=== PATIENT | female | born 1955 | race Caucasian/White ===

== ENCOUNTER → 2017-09-24 | Outpatient (CLI) | payer OTHER ==
[~2017-09-24] MED LIST: ACYC400T PO; ACYC5CRE2 TP; DEXL30CA PO; DULO20CA50 PO; ESTR0.5T PO; GABA300S PO; METF100P4 MC; MIDO2.5T PO; NEBI2.5T2 PO; OMEG1CAP2 PO; OMEP5POW MC; TIZANIDINE HCL2 M1 PO; TRAZ5POW MC; [UNRECOGNIZED DRUG - CODE] MC; [UNRECOGNIZED DRUG - CODE] MC
--- NOTE | 2017-09-24 09:01 | RAD ---
5 view lumbar spine series History: Low back pain. History of multiple back surgeries. Comparison: December 15, 2006 intraoperative lateral view. Findings: No compression fracture or discitis or osteolytic process is seen. No spondylolysis is seen. Minimal levoscoliosis is evident. The transverse processes appear intact. Bilateral transpedicular screws are seen at L3 and L4 connected by 2 vertical stabilizer bars. Laminectomy of L4 and left-sided L5 is seen. There appears to be a laminectomy of L3 although the spinous process is still present. Posterior osseous fusion is seen from L4 through S1. Interbody disc space expanding fusion devices are seen within the L4-5 and L5-S1 disc spaces. No compression fracture or discitis or osteolytic process is seen. A minimal grade 1 anterolisthesis of L4-5 is seen. This is unchanged. There is severe degenerative disc space narrowing and moderate subchondral sclerosis and mild degenerative endplate spurring at L2-3. This has progressed from the previous study. There is severe degenerative disc space narrowing at L3-4 which appears partially fused. This is a new finding from the previous study. IMPRESSION: Fusion from L3 through S1. There is progressive degenerative disc space narrowing at L2-3 and L3-4 although the finding at L3-4 may be due to fusion of the disc space if this was performed in addition to the placement of the transpedicular screws.
== END | disposition home or self-care (01) ==
LOC: DXRAD 08:11
PROVIDERS: ATTEND Physician Assistant Medical
DX: M41.86 Other forms of scoliosis, lumbar region (principal); M53.86 Other specified dorsopathies, lumbar region; M43.27 Fusion of spine, lumbosacral region; Z98.890 Other specified postprocedural states
CPT/HCPCS: 72110

== ENCOUNTER → 2017-09-24 | Outpatient (CLI) | payer OTHER ==
--- NOTE | 2017-09-24 14:51 | RAD ---
DATE: 09/24/2017. EXAM: MAMMO PAULINO SCREENING BILATERAL. HISTORY: Routine mammographic screening. COMPARISON: 02/13/2016. This study was interpreted with the benefit of Computerized Aided Detection (CAD). FINDINGS: The breast parenchyma shows scattered fibroglandular densities. Breast parenchyma level B.. There is a new small nodule inferomedially on the left, not present on the prior study. On the right, small nodules. Stable. Scattered calcifications appear benign. There is no suspicious finding on the right. BI-RADS CATEGORY: 0 INCOMPLETE: NEEDS ADDITIONAL IMAGING EVALUATION AND/OR PRIOR MAMMOGRAMS FOR COMPARISON.. RECOMMENDED FOLLOW-UP: ADD ADDITIONAL IMAGING. Spot compression/magnification of a small nodule inferomedially on the left. Sonography of necessary. PQRS compliance statement: Patient information was entered into a reminder system with a target due date (now) for the next mammogram. Mammography is a sensitive method for finding small breast cancers, but it does not detect them all and is not a substitute for careful clinical examination. A negative mammogram does not negate a clinically suspicious finding and should not result in delay in biopsying a clinically suspicious abnormality. "Our facility is accredited by the [employer] Mammography Program."
== END | disposition home or self-care (01) ==
LOC: MAMMO 08:34
PROVIDERS: ATTEND Physician Assistant Medical
DX: Z12.31 Encounter for screening mammogram for malignant neoplasm of breast (principal)
CPT/HCPCS: 77063; G0202; 77067

== ENCOUNTER → 2017-10-13 | Outpatient (CLI) | payer OTHER ==
--- NOTE | 2017-10-13 16:49 | RAD ---
Ultrasound left breast Indication: Callback for abnormality seen on screening mammogram from 09/24/2017 Technique: Targeted left breast ultrasound in the inner lower quadrant. Comparison: Same day diagnostic mammogram and most recent screening mammogram. Findings: There is a 0.1 x 0.2 x 0.2 cm anechoic well-circumscribed lesion in the left breast at 7:00 position approximately 4.5 cm from the nipple without internal vascularity or posterior shadowing. No other sinus or cystic lesions identified. Impression: The abnormality seen on the screening mammogram corresponds to a simple cyst on ultrasound. BI-RADS 2: Benign finding.
--- NOTE | 2017-10-13 17:22 | RAD ---
Ultrasound thyroid Indication: Abnormal labs Technique: Grayscale and color Doppler ultrasound images of the thyroid Comparison: None Findings: The right thyroid lobe measures 3.2 x 1.1 x 1.0 cm and is heterogenous in echogenicity without discrete nodules. The left thyroid lobe measures 3.6 x 1.1 x 1.0 cm and is heterogenous in echogenicity without discrete nodules. Increased vascularity seen in the bilateral thyroid lobes. The isthmus measures 3 mm and is within normal limits. Impression: Heterogenous appearance of the bilateral thyroid lobes with increased vascularity. Findings may represent thyroiditis.
--- NOTE | 2017-10-14 08:40 | RAD ---
DATE: 10/14/2017 EXAM: DIGITAL DIAGNOSTIC LT HISTORY: Callback for abnormality seen on screening mammogram. COMPARISON: Screening mammogram from 09/24/2017 This study was interpreted with the benefit of Computerized Aided Detection (CAD). Mediolateral and spot compression MLO and spot compression CC views were obtained of the left breast. FINDINGS: Breast Density: SCATTERED The breast parenchyma shows scattered fibroglandular densities. Breast parenchyma level B. Redemonstrated is a 2.8 mm round well-circumscribed mass in the medial aspect of the left breast approximately at 7:00 position which is also seen on previous screening mammogram. No suspicious calcifications. Same day ultrasound demonstrates this lesion to be a simple cyst. IMPRESSION: The mammographic and ultrasound findings are compatible with a simple cyst. Please see report on same day ultrasound. BI-RADS CATEGORY: 2 BENIGN FINDING(S) RECOMMENDED FOLLOW-UP: 12M 12 MONTH FOLLOW-UP PQRS compliance statement: Patient information was entered into a reminder system with a target due date 10/14/2018 for the next mammogram. Mammography is a sensitive method for finding small breast cancers, but it does not detect them all and is not a substitute for careful clinical examination. A negative mammogram does not negate a clinically suspicious finding and should not result in delay in biopsying a clinically suspicious abnormality. "Our facility is accredited by the [employer] Mammography Program."
== END | disposition home or self-care (01) ==
LOC: US 14:08
PROVIDERS: ATTEND Physician Assistant Medical
DX: N60.02 Solitary cyst of left breast (principal); R92.8 Other abnormal and inconclusive findings on diagnostic imaging of breast; R92.2 Inconclusive mammogram
CPT/HCPCS: 76536; 76641; G0206; 77065

== ENCOUNTER → 2018-08-15 | Outpatient (CLI) | payer OTHER ==
--- NOTE | 2018-08-15 14:15 | RAD ---
DATE: 08/15/2018 EXAM: MAMMO PAULINO SCREENING BILATERAL HISTORY: Routine screening COMPARISON: 09/24/2017 This study was interpreted with the benefit of Computerized Aided Detection (CAD). Breast Density: SCATTERED The breast parenchyma shows scattered fibroglandular densities. Breast parenchyma level B. FINDINGS: 2-D and 3-D tomosynthesis imaging was performed in CC and MLO projections. There are scattered fibroglandular densities in a somewhat nodular pattern. No new or enlarging breast densities are seen. No spiculated mass or architectural distortion is evident. Minimal benign type calcifications are present. No suspicious microcalcifications have developed. IMPRESSION: Stable mammograms without evidence of malignancy. BI-RADS CATEGORY: 2 BENIGN FINDING(S) RECOMMENDED FOLLOW-UP: 12M 12 MONTH FOLLOW-UP PQRS compliance statement: Patient information was entered into a reminder system with a target due date for the next mammogram. Mammography is a sensitive method for finding small breast cancers, but it does not detect them all and is not a substitute for careful clinical examination. A negative mammogram does not negate a clinically suspicious finding and should not result in delay in biopsying a clinically suspicious abnormality. "Our facility is accredited by the [employer] Mammography [employer]."
== END | disposition home or self-care (01) ==
LOC: MAMMO 11:37
PROVIDERS: ATTEND Physician Assistant Medical
DX: Z12.31 Encounter for screening mammogram for malignant neoplasm of breast (principal)
CPT/HCPCS: 77063; 77067

== ENCOUNTER → 2018-08-29 | Outpatient (CLI) | payer OTHER ==
--- NOTE | 2018-08-29 15:31 | RAD ---
EXAM: Right elbow, 2 views. HISTORY: Pain. COMPARISON: None. FINDINGS: 2 views of the right elbow are obtained. There is no fracture, dislocation or subluxation. There is no elbow effusion. 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 There is a small osseous excrescence along the lateral epicondyle, the likely sequela of remote injury. IMPRESSION: 1. No acute osseous finding. 2. Minimal right elbow osteoarthritis. Electronically signed by: Ciara Huynh MD (08/29/2018 3:28 PM) [facility]
== END | disposition home or self-care (01) ==
LOC: RAD 14:14
PROVIDERS: ATTEND Orthopaedic Surgery Sports Medicine
DX: M19.021 Primary osteoarthritis, right elbow (principal)
CPT/HCPCS: 73070

== ENCOUNTER → 2019-09-27 | Outpatient (CLI) | payer OTHER ==
--- NOTE | 2019-09-28 15:34 | RAD ---
DATE: 09/27/2019 EXAM: MAMMO PAULINO SCREENING BILATERAL HISTORY: Routine screening COMPARISON: 08/15/2018, 10/13/2017 This study was interpreted with the benefit of Computerized Aided Detection (CAD). Breast Density: SCATTERED The breast parenchyma shows scattered fibroglandular densities. Breast parenchyma level B. FINDINGS: Multiple small masses are present bilaterally and stable. No suspicious new mass. No suspicious change. No suspicious calcific lesions or distortion. IMPRESSION: Stable BI-RADS CATEGORY: 1 NEGATIVE RECOMMENDED FOLLOW-UP: 12M 12 MONTH FOLLOW-UP PQRS compliance statement: Patient information was entered into a reminder system with a target due date for the next mammogram. Mammography is a sensitive method for finding small breast cancers, but it does not detect them all and is not a substitute for careful clinical examination. A negative mammogram does not negate a clinically suspicious finding and should not result in delay in biopsying a clinically suspicious abnormality. "Our facility is accredited by the [employer] Mammography Program."
== END | disposition home or self-care (01) ==
LOC: MAMMO 15:28
PROVIDERS: ATTEND Physician Assistant Medical
DX: Z12.31 Encounter for screening mammogram for malignant neoplasm of breast (principal); N63.20 Unspecified lump in the left breast, unspecified quadrant; N63.10 Unspecified lump in the right breast, unspecified quadrant
CPT/HCPCS: 77063; 77067

== ENCOUNTER → 2019-09-28 | Outpatient (CLI) | payer OTHER ==
--- NOTE | 2019-09-29 10:46 | RAD ---
EXT NON VASC LEFT History: Palpable mass of the left elbow for about 8 months getting larger Comparison: None. Findings: Sonographic images directed toward the site of palpable concern in the left antecubital region are submitted. No sonographic abnormality is demonstrated. Impression: 1. No sonographic abnormality is demonstrated at site of palpable concern. Electronically signed by: Felix Bains MD (09/29/2019 10:43 AM) [id number]
== END | disposition home or self-care (01) ==
LOC: US 13:48
PROVIDERS: ATTEND Physician Assistant Medical
DX: R22.9 Localized swelling, mass and lump, unspecified (principal)
CPT/HCPCS: 76881

== ENCOUNTER → 2019-11-02 | Outpatient (CLI) | payer OTHER ==
--- NOTE | 2019-11-02 15:29 | RAD ---
Bilateral lower extreme knee arterial duplex ultrasound study without comparison for poor circulation. TECHNIQUE: Real-time grayscale and color and spectral Doppler evaluation of the arteries of the lower extremities is performed. FINDINGS: All arteries are patent. There may be mild multifocal atherosclerosis in both lower extremities, however there are no significant abnormal waveforms or focal areas of velocity elevation to suggest hemodynamically significant stenosis in any distribution. IMPRESSION: 1. Mild multifocal atherosclerosis with no significant stenosis in either lower extremity. Electronically signed by: Luis Enrique Cantor MD (11/02/2019 3:25 PM) [id number]
== END | disposition home or self-care (01) ==
LOC: US 07:41
PROVIDERS: ATTEND Orthopaedic Surgery Sports Medicine
DX: I70.293 Other atherosclerosis of native arteries of extremities, bilateral legs (principal)
CPT/HCPCS: 93925

== ENCOUNTER 2020-07-24 00:21 | Emergency (ER) | payer OTHER ==
[~2020-07-24] VITALS: Ht 160 cm; Wt 78.0 kg
[2020-07-24 00:23] VITALS: BP 122/68
--- NOTE | 2020-07-24 00:45 | PHYS DOC ---
Past History Past Medical History: Anxiety, Asthma, Depression, High Cholesterol Adult General Chief Complaint Chief Complaint: COUGH HPI HPI Patient is a 64-year-old female who presents with URI-like symptoms. Onset was 3 days ago. Nothing known makes better or worse. She has not taken anything in attempt to alleviate her symptoms. Patient denies any pain but admits associated symptoms that include dull headache, nasal congestion, rhinorrhea, postnasal drip, and bilateral ear pressure. She denies any fever, chest pain, shortness of breath, hemoptysis, abdominal pain, nausea vomiting or diarrhea, change in taste or smell, exogenous estrogen use, long distance travel, history of DVT/PE, known COVID-19 contact. Patient presenting with her today who is experiencing similar symptoms, his symptoms started roughly 3 to 5 days prior to patients. They both work at local [place] and deal with the general public daily. Review of Systems Review of Systems Fourteen body systems of review of systems have been reviewed. See HPI for pertinent positives and negative responses, other pineda all other systems are negative, non-pertinent or non-contributory Allergies Allergies Allergies Coded Allergies Type Severity Reaction Last Updated Verified codeine Allergy Unknown 03/10/16 Yes latex Allergy Unknown 03/10/16 Yes meperidine HCl Allergy Unknown 03/10/16 Yes Uncoded Allergies Type Severity Reaction Last Updated Verified SULFA Allergy Unknown 03/10/16 Physical Exam Physical Exam Constitutional: Well developed, well nourished, no acute distress, non-toxic appearance. Ambulated without difficulty from lobby to ER room HENT: Normocephalic, atraumatic, bilateral external ears normal, oropharynx moist, no oral exudates, moderate postnasal drip present, moderately engorged nasal turbinates with clear rhinorrhea present, external nose normal. Eyes: PERRLA, EOMI, conjunctiva normal, no discharge. Neck: Normal range of motion, no tenderness, supple, no stridor. Cardiovascular: Heart rate regular, sinus rhythm, no murmurs rubs or gallops Lungs & Thorax: Bilateral breath sounds clear to auscultation Abdomen: Bowel sounds normal, soft, no tenderness, no masses, no pulsatile masses. Nonsurgical abdomen, no peritoneal signs Skin: Warm, dry, no erythema, no rash. Back: No tenderness, no CVA tenderness. Extremities: No tenderness, no cyanosis, no clubbing, ROM intact, no edema. Neurologic: Alert and oriented X 3, grossly normal motor & sensory function, no focal deficits noted. Psychologic: Affect normal, judgement normal, anxious mood Current Patient Data Vital Signs Vital Signs Date Time Temp Pulse Resp B/P (MAP) Pulse Ox O2 Delivery O2 Flow Rate FiO2 07/24/20 00:23 98.4 73 18 122/68 (86) 97 Room Air EKG EKG [] Radiology/Procedures Radiology/Procedures [] Course & Med Decision Making Course & Med Decision Making Grossly well-appearing afebrile and ambulatory patient seen on immediate ER arrival ABCs non-concerning Comprehensive history and physical exam obtained, no emergent or surgical findings present Discussed most likely diagnosis of viral syndrome, I cannot exclude COVID-19 and tested patient for this today I discussed utility in further diagnostic work-up including laboratory analysis and imaging but given benign appearance and lack of any concerning symptoms, joint decision to defer this. She does not have any major comorbidities and both agree anxiety is exacerbating her presentation I did disclose this might be an acute presentation of more concerning pathology and patient understood this well. She has access to PCP and can follow-up within the next 1 to 10 days to ensure symptomatic resolution Nonetheless, patient notified that she is now a person under investigation for COVID-19, she was instructed on importance of self quarantining, hand hygiene etc. until COVID-19 test results in approximately 48 hours, she understood this well Strict return precautions were discussed with good understanding by patient, all questions and concerns addressed prior to ER departure in stable condition Dragon Disclaimer Dragon Disclaimer This electronic medical record was generated, in whole or in part, using a voice recognition dictation system. Departure Departure: Impression: Primary Impression: Person under investigation for COVID-19 Additional Impression: Viral syndrome Disposition: 01 HOME/RESIDENCE PRIOR TO ADM Condition: STABLE Referrals: BOSSMAN SIMMONS (PCP) Patient Instructions: Viral Syndrome Additional Instructions: Short You were evaluated in the Emergency Department today for a cough. Your e valuation suggests a viral infection such as Coronavirus. It is important that you continue to self isolate and practice good hygiene at home. Please follow up with your primary care physician as discussed. Return to the Emergency Department if you experience worsening cough, fever, shortness of breath, recurrent vomiting, lethargy, or any other concerning symptoms. Thank you for choosing us for your care. Usted fue evaluado en el Departamento de Emergencia hoy por tos. Friedman evaluacin sugiere jose m infeccin viral lucila el coronavirus. Es importante que contine aislndose y practicando jose m buena higiene en el hogar. Mae un seguimiento con friedman mdico de atencin primaria lucila se discuti. Regrese al Departamento de Emergencias si experimenta un empeoramiento de la tos, fiebre, falta de aliento, vmitos recurrentes, letargo o cualquier otro sntoma relacionado. Janette por elegir nosotros para friedman atencin. Home Care Instructions for Patients with Mild Respiratory Infection Most people with respiratory infections like colds, the flu, and Coronavirus Disease (COVID-19) will have mild illness and can get better with appropriate home care and without the need to see a provider. People who are elderly, , or have a weak immune system, or other medical problem are at higher risk of more serious illness or complications. It is recommended that they carefully monitor their symptoms closely and seek medical care early if their symptoms get worse. Treatment There is no specific treatment for most viruses including those that that cause the common cold and those that cause COVID-19. Sometimes there is treatment for the viruses that cause influenza if given early. Antibiotics treat infections caused by bacteria, but they do not work against viruses.Most people recover on their own from these viruses, including COVID-19. Here are steps that you can take to help you get better: Rest Drink plenty of fluids Take ztop-jtu-wjjkupn cold and flu medications to reduce fever and pain. Follow the instructions on the package, unless your doctor gave you instructions. Note that these medicines do not ``cure the illness and therefore do not stop you from spreading germs. Children should not be given medication that contains aspirin (acetylsalicylic acid) because it can cause a rare but serious illness called Isai syndrome. Medicines without aspirin include acetaminophen (Tylenol) and ibuprofen (Ad amparo, Motrin). Children younger than age 2 should not be given any pwcg-ggv-vtywvgs cold medications without first speaking with a doctor.Seeking Medical Care You should seek medical care if you are not getting better within a week, or if your symptoms get worse. If you are elderly, , have a weak immune system, or other medical problems, call your doctor right away. It is best to call ahead of time to discuss your symptoms, if possible. This may allow you to receive the advice you need by phone. By avoiding a visit to a healthcare facility, you protect yourself from getting a new infection and protect others from catching an infection from you. If you do visit a healthcare facility, put on a mask to protect other patients and staff. It is recommended that you seek medical care for serious symptoms, such as: People with potentially life-threatening symptoms should call 911. If possible, put on a facemask before emergency medical services arrive.PROTECTING OTHERS Follow the steps below to help prevent the disease from spreading to people in your home and community.Stay home when you are sick Stay home - do not go to work, school, or public areas. Stay home for at least 24 hours after your symptoms have gone away without the use of fever-reducing medicines. If you must leave home while you are sick, try to avoid using public transportation, ride-shares, and taxis. Wear a mask if possible. Separate yourself from other people and animals in your home Stay in a specific room and away from other people in your home as much as possible. Use a separate bathroom, if available. Try to stay at least 6 feet from others. Do not handle pets or other animals while you are sick. Cover your coughs and sneezes Cover your mouth and nose with a tissue when you cough or sneeze. Throw used tissues in a lined trash can; immediately wash your hands. Avoid sharing personal household items Do not share dishes, drinking glasses, cups, eating utensils, towels, or bedding with other people or pets in your home. Wash them thoroughly with soap and water after use. Clean your hands often Wash your hands often with soap and water for at least 20 seconds. If soap and water are not available, clean your hands with an alcohol-based hand developer architect that contains at least 60% alcohol, covering all surfaces of your hands and rubbing them together until they feel dry. Use soap and water if your hands are visibly dirty. Clean all ``high-touch surfaces every day High touch surfaces include counters, tabletops, doorknobs, bathroom fixtures, toilets, phones, keyboards, tablets, and bedside tables. Also, clean any surfaces that may have body fluids on them. Use a household cleaning spray or wipe, according to the product label instructions. COVID-19 (Novel Coronavirus) FAQs for Inquiring Patients What do you do if you are worried that you have been exposed to COVID-19 but are without any symptoms? If you develop symptoms that may indicate an infection, contact your physician. These include fever, cough, and shortness of breath. Testing is not available for asymptomatic individuals, regardless of travel history. To reduce the chance of getting sick use general infection prevention measures such as hand washing, covering your mouth and nose when you cough or sneeze and discarding any tissues carefully, and staying home when you are sick.Can exceptions be made for patients who are really worried and want to be tested? Presently testing is only available through the [facility] of [facility] and Centers for Disease Control and Prevention. Only patients who meet the updated COVID-19 PUI definition may be tested. We do not control or set the PUI definition or evaluation criteria. We are unable to provide testing to patients who do not meet the strict criteria. Should patients cancel or postpone an upcoming trip? The decision about travel is personal and should be made in the context of a persons underlying health conditions, reason for travel and necessity of travel. Travel insurance generally does not cover cancellations due to concerns of infectious disease outbreaks. The Center for Disease Control has a section on travel notices. Situations are changing frequently and you should monitor the site for updates. Should situations change rapidly in a foreign country while they are traveling, you could be subject to quarantine or restrictions upon return to the [place]. It is best to have a plan on how to return urgently if needed during a trip abroad. Because of how air circulates and is filtered on airplanes, most viruses do not spread easily on airplanes. CDC does not recommend use of facemasks during air travel.What other general precautions are advised? Patients should be instructed to: Avoid close contact with people who are sick. Avoid touching your eyes, nose and mouth. Stay home from work or school when they are sick. If you have a fever, you should remain home until 24 hours after fever resolves. Clean and disinfect frequently touched objects and surfaces using a regular household cleaning spray or wipe. Sneeze/cough into their elbow, not your hand. Practice frequent hand hygiene with soap and water (at least 20 seconds) or alcohol-based hand rub. Consider avoiding crowded places or mass gatherings, especially if you are immunocompromised or have chronic lung disease. There is no evidence to support transmission of COVID-19 from goods imported from [place]. Are there any special precautions that are recommended if I am ? There is not yet any information available about the susceptibility of women to COVID-19. As a general rule, women may be more susceptible to viral respiratory infections and at risk for more severe illness. The CDC guidance for COVID-19 and has answers to questions about transmission during delivery, as well as other situations. Should food, water, or medications be stockpiled? Should people telecommute? The CDC has excellent information on this. Please visit the CDCs guidance for getting your household ready for COVID-19. What should I do if I start feeling sick at work? And what should the workplace do for anyone exposed? Anyone who is sick with a fever and cough should stay home from work until at least 24 hours after resolution of fever, regardless of concerns for COVID-19. It is still influenza (flu) season and influenza remains far more common. Justification of Admission: Justification of Admission: Justification of Admission Dx: N/A Problem Qualifiers LIBRADO TOMAS DO Jul 24, 2020 00:45
--- NOTE | 2020-07-26 08:16 | NUR ---
IP: attempt to notify patient of COVID result, left message to call back.
--- NOTE | 2020-07-26 15:03 | NUR ---
IP: attempt to notify patient of COVID results, left message to call back.
--- NOTE | 2020-07-26 15:21 | NUR ---
IP: notified patient of COVID results and precautions, answered questions. Patient verbalized understanding.
== END 2020-07-24 01:30 | disposition home or self-care (01) ==
LOC: ER 00:21
DX: U07.1 COVID-19 (principal); B34.9 Viral infection, unspecified; F41.9 Anxiety disorder, unspecified; J45.909 Unspecified asthma, uncomplicated; E78.00 Pure hypercholesterolemia, unspecified; Z88.5 Allergy status to narcotic agent; Z91.040 Latex allergy status; Z88.8 Allergy status to other drugs, medicaments and biological substances
CPT/HCPCS: 99283; C9803; U0003

== ENCOUNTER → 2020-08-06 | Outpatient (CLI) | payer OTHER ==
[2020-07-24 00:23] VITALS: BP 122/68
== END | disposition home or self-care (01) ==
LOC: LAB 13:05
PROVIDERS: ATTEND Physician Assistant Medical
DX: U07.1 COVID-19 (principal)
CPT/HCPCS: U0003-CS

== ENCOUNTER → 2020-11-14 | Outpatient (CLI) | payer OTHER ==
--- NOTE | 2020-11-14 15:18 | RAD ---
DATE: 11/14/2020 2:33 PM EXAM: MAMMO PAULINO SCREENING BILATERAL HISTORY: Screening COMPARISON: 02/13/2016, 09/24/2017, 08/15/2018 and 09/27/2019 Bilateral CC and MLO views of the breasts were performed. Bilateral breast tomosynthesis was performed in CC and MLO projections. This study was interpreted with the benefit of Computerized Aided Detection (CAD). FINDINGS: Breast Density: SCATTERED The breast parenchyma shows scattered fibroglandular densities. Breast parenchyma level B No suspicious masses, microcalcifications or architectural distortion is present to suggest malignancy in either breast. The visualized axillae are unremarkable. IMPRESSION: No mammographic evidence of malignancy. BI-RADS CATEGORY: 1 NEGATIVE RECOMMENDED FOLLOW-UP: 12M 12 MONTH FOLLOW-UP Annual screening mammography is recommended, unless clinically indicated sooner based on symptoms or change in physical exam. PQRS compliance statement: Patient information was entered into a reminder system with a target due date for the next mammogram. Mammography is a sensitive method for finding small breast cancers, but it does not detect them all and is not a substitute for careful clinical examination. A negative mammogram does not negate a clinically suspicious finding and should not result in delay in biopsying a clinically suspicious abnormality. "Our facility is accredited by the [employer] Mammography Program."
== END ==
LOC: MAMMO 14:22
PROVIDERS: ATTEND Physician Assistant Medical
DX: Z12.31 Encounter for screening mammogram for malignant neoplasm of breast (principal)
CPT/HCPCS: 77063; 77067

== ENCOUNTER → 2020-12-25 | Outpatient (CLI) | payer OTHER ==
--- NOTE | 2020-12-25 10:06 | RAD ---
EXAM: CAROTID DOPPLER SONOGRAM. HISTORY: Weakness, memory loss, headaches, hypertension, dizziness, carotid occlusion. TECHNIQUE: Diaz scale and color Doppler sonographic evaluation of the neck with spectral waveform casi lysis was performed and static images are submitted for review. FINDINGS: RIGHT: The peak systolic velocity within the common carotid artery is 65 cm/sec. The peak systolic ve locity within the internal carotid artery is 67 cm/sec and the end diastolic velocity within the inte rnal carotid artery is 26 cm/sec. The ICA/CCA ratio is 0.9. Grayscale images demonstrate no grayscale stenosis. LEFT: The peak systolic velocity within the common carotid artery is 53 cm/sec. The peak systolic christopher ocity within the internal carotid artery is 73 cm/sec and the end diastolic velocity within the inter nal carotid artery is 30 cm/sec. The ICA/CCA ratio is 0.96. Grayscale images demonstrate no grayscale stenosis. There is antegrade flow within both vertebral arteries. IMPRESSION: 1. No evidence of hemodynamically significant stenosis. PQRS Compliance Statement - Stenosis calculations for CT, MR and conventional angiography are based u valerie measurement of the distal ICA diameter in accordance with the NASCET methodology. Stenosis calcu lations for carotid ultrasound studies are derived from validated velocity criteria which are known t o correlate with the NASCET methodology. Electronically signed by: Xavier Rudd MD (12/25/2020 10:03 AM) [id number]
--- NOTE | 2020-12-25 10:07 | RAD ---
EXAM: DUAL ENERGY X-RAY ABSORPTIOMETRY (DEXA). HISTORY: Postmenopausal screening. FINDINGS: The lowest measured T-score is -1.1 in the left distal radius, based on a bone mineral dens ity of 0.632 g/cm^2. Refer to the worksheets for full detail. No comparison examinations are available. IMPRESSION: Low bone mass. Bone mineral density yields a T-score between -1.0 and -2.5. Fracture risk is increase d. FRAX was not calculated. METHODOLOGY: Dual energy x-ray absorptiometry was performed to measure bone mineral density. The foll owing analysis is based on the 2019 Official Positions of the International Society for Clinical Dens itometry: Measurements of the hips and the average of L1-L4 are preferred. When the spine and/or hip cannot be feasibly measured or interpreted, or in the setting of hyperparathyroidism, distal radial bone minera l density may be measured. The lumbar spine T-score is based on the average bone mineral density of L1-L4. In the setting of art ifact or anatomic abnormality, some lumbar levels may be excluded, and the remaining levels used for calculation. A single lumbar level is not used for diagnosis, and if only a single level is available for assessment, another anatomic site will be used to assign a diagnosis. The hip T-score is based on the bone mineral density measurement of the femoral neck or total proxima l femur of either side, whichever is lowest. Bilateral mean values are not used for diagnosis. The forearm T-score is derived from 33% of the distal radius of the nondominant forearm. For postmenopausal and perimenopausal women, and men age 50 or older, of all ethnic groups, T-scores are calculated through comparison of the current measurement with the NHANES III database standard fo r females aged 20-29 years. The lowest T-score of the evaluated anatomic sites is used to a ssign a diagnosis based on the World Health Organization densitometric classification. In premenopausal females and males younger than age 50, a Z-score is calculated based on population s pecific reference data for patient sex and self-reported ethnicity. Electronically signed by: Xavier Rudd MD (12/25/2020 10:04 AM) [id number]
== END ==
LOC: US 08:39
PROVIDERS: ATTEND Physician Assistant Medical
DX: M85.80 Other specified disorders of bone density and structure, unspecified site (principal); I65.23 Occlusion and stenosis of bilateral carotid arteries
CPT/HCPCS: 77080; 77081; 93880

== ENCOUNTER → 2021-06-13 | Outpatient (CLI) | payer OTHER ==
[~2021-06-13] MED LIST changes: +ACYC-12 PO; -ACYC400T PO
--- NOTE | 2021-06-13 13:05 | RAD ---
EXAM: Nuclear gastric emptying scan. HISTORY: Pain. COMPARISON: None. TECHNIQUE: Serial static images were obtained over the stomach following oral administration of 2 mCi 99m-Tc sulfur colloid. FINDINGS: The stomach empties into the small bowel without evidence of reflux in the area of the esop hagus. Gastric retention percents: 1 hour 74% (normal range 34.8-91%) 2 hour 61% (normal range 2.7-60%) 3 hour 50% (normal range 0.5-28%) 4 hour 33% (normal range 0-10%) The estimated time for half emptying of gastric contents, i.e. 'gastric emptying time' is 184 minutes (normal is 66 +/- 22 minutes). IMPRESSION: Delayed gastric emptying. This can be seen with gastroparesis. Electronically signed by: Ciara Huynh MD (06/13/2021 1:03 PM) [id number]
== END ==
LOC: NM 08:04
PROVIDERS: ATTEND Physician Assistant Medical
DX: K31.84 Gastroparesis (principal); R10.9 Unspecified abdominal pain
CPT/HCPCS: 78264; A9541

== ENCOUNTER → 2021-09-25 | Outpatient (CLI) | payer OTHER ==
--- NOTE | 2021-09-25 14:52 | RAD ---
INDICATION : Routine Screening. COMPARISON: [facility] including September 2019 TECHNIQUE: Standard mammogram screening 3D tomosynthesis images were obtained. FINDINGS: The breasts are scattered density. No suspicious masses or suspicious calcifications are identified. IMPRESSION: BI-RADS Category 1: Negative. The patient was placed into the recall system with a suggested recall date for follow up imaging. Mammography is the most sensitive method for finding small breast cancers, but it does not detect the m all and is not a substitute for careful clinical examination. A negative mammogram does not negate a clinically suspicious finding and should not result in delay in biopsying a clinically suspicious abnormality. Electronically signed by: Terry Albrecht MD (09/25/2021 2:50 PM) [id number]
== END ==
LOC: MAMMO 10:11
PROVIDERS: ATTEND Physician Assistant Medical
DX: Z12.31 Encounter for screening mammogram for malignant neoplasm of breast (principal)
CPT/HCPCS: 77063; 77067